=== PATIENT | female | born 1990 ===

== ENCOUNTER 2021-02-21 16:01 | Emergency (ER) | payer OTHER ==
[~2021-02-21] VITALS: Ht 172.7 cm; Wt 57.7 kg
--- NOTE | 2021-02-21 16:18 | NUR ---
ASSUMED CARE OF PT. SHE IS TEARFUL.
[2021-02-21] MEDS ORDERED: GLUCAGON 1 MG ONE (16:24)
--- NOTE | 2021-02-21 16:42 | NUR ---
PT GONE FOR XRAY
[2021-02-21] MEDS ORDERED: LAMO200T6 PO (17:17)
[2021-02-21] MEDS ORDERED: PROPOFOL 10 MG/ML, 20ML ONE ×2 (17:35→18:09)
[2021-02-21] MEDS ORDERED: PROPOFOL 10 MG/ML, 20ML IV ONE (18:00)
[2021-02-21] MEDS ORDERED: PROPOFOL 10 MG/ML, 20ML IVPush ONE (18:30)
--- NOTE | 2021-02-21 18:56 | NUR ---
EGD WITH PROCEDURAL SEDATION WAS COMPLETED AND TOLERATED WELL BY PATIENT. NO FOREIGN BODY WAS FOUND. PATIENT IS AWAKE AND ALERT. VSS. SBAR HAND-OFF REPORT TO NATALY ROMERO, NATLAY WHITTAKER.
--- NOTE | 2021-02-21 19:06 | NUR ---
ASSUMED CARE OF PT FROM [facility].
[2021-02-21 19:20] VITALS: BP 114/68
--- NOTE | 2021-02-21 19:28 | NUR ---
Patient given discharge instructions and they have confirmed that they understand the instructions. Patient ambulatory with steady gait. No questions at time of discharge.
== END 2021-02-21 19:30 | disposition home or self-care (01) ==
LOC: ED 16:50
DX: T18.128A Food in esophagus causing other injury, initial encounter (principal); R07.0 Pain in throat; X58.XXXA Exposure to other specified factors, initial encounter; Y93.89 Activity, other specified; Y92.89 Other specified places as the place of occurrence of the external cause; Y99.8 Other external cause status
CPT/HCPCS: 70360; 71045; 88305; 88342; 99152; 99285